=== PATIENT | female | born 1990 | race Caucasian/White ===

== ENCOUNTER 2017-07-17 09:57 | Emergency (ER) | payer OTHER ==
[~2017-07-17] VITALS: Ht 157.5 cm; Wt 56.7 kg
[~2017-07-17 09:57] MED LIST: ALLEGRA ALLERGY60 MG
== END 2017-07-17 12:30 | disposition home or self-care (01) ==
LOC: ER 09:57
DX: T23.142A Burn of first degree of multiple left fingers (nail), including thumb, initial encounter (principal); X11.8XXA Contact with other hot tap-water, initial encounter; Y93.89 Activity, other specified; Y92.89 Other specified places as the place of occurrence of the external cause; Y99.8 Other external cause status